=== PATIENT | male | born 1955 | race Caucasian/White ===

== ENCOUNTER 2017-08-29 19:52 | Observation (INO) ==
[2017-08-29] MEDS ORDERED: Famotidine 20 MG/2 ML VIAL IVP ONE (20:05)
[2017-08-29] MEDS ORDERED: methylPREDNISolone 125 MG/2 ML VIAL IVP ONE (20:05)
--- NOTE | 2017-08-29 20:09 | Emergency Department Note ---
Disposition Clinical Impression: Tongue swelling Disposition: Admitted As Inpatient Condition: Good Time of Disposition: 22:50 Allergic Reaction HPI - General Chief complaint: ED Allergic Reaction Stated complaint: Neuro Symptoms Time Seen by Provider: 08/29/17 20:02 Source: patient Mode of arrival: ambulatory Limitations: no limitations Nursing Notes Reviewed: Yes Vital Signs Reviewed: Yes - History of Present Illness HPI Narrative: Patient is a 61-year-old male who presents today due to left tongue swelling, left tongue tingling and left facial tingling. He states that he was outside mowing his lawn, started having these symptoms about 2 hours ago. He proceeded to continue mowing his lawn, afterwards he took a Benadryl to see if this would help with tongue swelling. It did not. He denies any additional shortness breath, wheezing, dysphagia, lip swelling, throat swelling. He is currently on lisinopril but has never had a reaction in the past. Denies any other new foods , new colognes or detergents, any new medications. Denies any other chest pain , shortness breath, nausea, vomiting, fevers, diarrhea. Denies any numbness or weakness. - Related Data Home Medications Medication Instructions Recorded Confirmed Aspirin 81 mg PO DAILY 02/15/15 08/29/17 Atorvastatin [Lipitor] 40 mg PO DAILY 02/15/15 08/29/17 Nitroglycerin 0.3 mg SL Q5MIN PRN 02/15/15 08/29/17 BuPROPion XL (24 HR) [Wellbutrin 150 mg PO DAILY 08/29/17 08/29/17 XL] Diazepam [Valium] 10 mg PO TID PRN 08/29/17 08/29/17 Metoprolol Succinate [Toprol Xl] 50 mg PO DAILY 08/29/17 08/29/17 Previous Rx's Medication Instructions Recorded Amoxicillin [Amoxil] 500 mg PO TID #30 capsule 02/16/15 Albuterol Sulfate [Proair HFA] 1 puff IH Q4HR PRN #1 hfa.aer.ad 02/17/15 Allergies Allergy/AdvReac Type Severity Reaction Status Date / Time No Known Allergies Allergy Verified 08/29/17 22:39 All systems ED: reviewed and negative except as stated. Constitutional: Denies: fever ENT ED: Reports: other (Tongue swelling) Cardiovascular: Denies: chest pain Respiratory: Denies: dyspnea Gastrointestinal: Denies: abdominal pain, nausea, vomiting, diarrhea Genitourinary: Denies: urgency, dysuria Integumentary: Denies: rash Neurological: Denies: headache, weakness, numbness, paresthesias Past Medical History - Past Medical History Attestation: Yes The following information was validated with the patient. Source: patient Medical history: Reports: COPD, coronary artery disease, hyperlipidemia, hypertension, myocardial infarction Surgical history: Reports: angioplasty/stent, cholecystectomy, herniorrhaphy Psychiatric history: Reports: anxiety, depression - Social History Smoking Status: Current every day smoker Smokeless Tobacco Status: No Alcohol use: Reports: none Drug use: Reports: none Physical Exam - General Limitations: no limitations General appearance: alert, in no apparent distress - Head Head exam: atraumatic, normocephalic, normal inspection - Eye Eye exam: Present: normal appearance, PERRL, EOMI - ENT ENT exam: mucous membranes moist, other (moderate swelling of left tongue; no posterior oropharynx swelling; no swelling of face) - Neck Neck exam: Present: normal inspection, full ROM, trachea midline - Chest Chest inspection: Present: normal inspection, symmetric chest wall rise - Respiratory Respiratory exam: Present: normal lung sounds bilaterally - Cardiovascular Cardiovascular exam: Present: regular rate, normal rhythm, normal heart sounds - Abdominal Exam Abdominal exam: Present: soft, Non-Tender. Absent: tenderness, distention, guarding, rebound, rigidity - Extremities Exam Extremities exam: Present: normal inspection, full ROM. Absent: tenderness, pedal edema - Neurological Exam Neurological exam: Present: alert, oriented X3, CN II-XII intact. Absent: motor sensory deficit - Psychiatric Psychiatric exam: Present: normal affect, normal mood - Skin Skin exam: Present: warm, dry, intact, normal color Course Course Narrative: Patient was mildly hypertensive on presentation. Otherwise, the rest of the vitals were within normal limits. Physical exam positive for moderate left- sided tongue swelling. Otherwise, no other history or oropharynx swelling, no facial swelling, no lip swelling, no rashes, no wheezing or shortness of breath , no dysphagia. No focal neurologic deficits on exam. NIH score is 0. Patient was initially registered as neuro symptoms, but this is not accurate. Patient was complaining of some tingling in his tongue and left-sided face that were associated with his environmental allergic reaction versus possible angioedema secondary to lisinopril. No head CT or additional imaging necessary at this time. Patient will be given Benadryl, Solu-Medrol, Pepcid and observe. The patient continues to worsen, will discuss early intubation for protection of airway. 22:49 patient had mild improvement and is left sided tongue swelling. I discussed admission versus discharge with the patient. There is current concern that patient could have rebound of swelling, patient also lives following from a hospital. After discussion, we have mutually agreed to admit the patient for observation overnight. Patient has been accepted by the hospitalist, Dr. Olmos. Vital Signs Temperature 98.3 F 08/29/17 19:55 Pulse Rate 68 08/29/17 19:55 Respiratory Rate 18 08/29/17 19:55 Blood Pressure 165/106 08/29/17 19:55 O2 Sat by Pulse Oximetry 95 08/29/17 19:55 Temperature 98.3 F 08/29/17 19:55 Pulse Rate 68 08/29/17 19:55 Respiratory Rate 18 08/29/17 19:55 Blood Pressure 165/106 08/29/17 19:55 O2 Sat by Pulse Oximetry 95 08/29/17 19:55 Oxygen Delivery Oxygen Delivery Room Air Allergic Reaction - MDM Narrative Medical decision making narrative: Patient was mildly hypertensive on presentation. Otherwise, the rest of the vitals were within normal limits. Physical exam positive for moderate left- sided tongue swelling. Otherwise, no other history or oropharynx swelling, no facial swelling, no lip swelling, no rashes, no wheezing or shortness of breath , no dysphagia. No focal neurologic deficits on exam. NIH score is 0. Patient was initially registered as neuro symptoms, but this is not accurate. Patient was complaining of some tingling in his tongue and left-sided face that were associated with his environmental allergic reaction versus possible angioedema secondary to lisinopril. No head CT or additional imaging necessary at this time. Patient will be given Benadryl, Solu-Medrol, Pepcid and observe. The patient continues to worsen, will discuss early intubation for protection of airway. 22:49 patient had mild improvement and is left sided tongue swelling. I discussed admission versus discharge with the patient. There is current concern that patient could have rebound of swelling, patient also lives following from a hospital. After discussion, we have mutually agreed to admit the patient for observation overnight. Patient has been accepted by the hospitalist, Dr. Olmos. - Medical Records Medical records reviewed: Yes I reviewed the patient's medical records. - EKG Data EKG attestation: Yes I reviewed and interpreted this EKG. EKG results narrative: 08/29/2017 at 20:02. Normal sinus rhythm. Rate 70. IN 207. QRS 110. QTC 402. Mild left axis deviation. No acute ST elevation or depression. S.B.Sola - Skyler.Melissa Situation: Demographics, MOA Background: Presenting Complaint, Relevant PMH, Meds, & Allergies Assessment: Vital Signs, Course and respsone to treatment, Exam Concerns, Patient/Family Expectation, Pertinant Lab Results Recommendation: Barrier(s) to disposition, Recommendation based on pending studies, treatments, or consults S.B.AMicah Report Given to: Dr. Nickolas Jackson Repor Time: 22:50
--- NOTE | 2017-08-29 20:31 | Emergency Department Note ---
Disposition Clinical Impression: Tongue swelling Disposition: Admitted As Inpatient Condition: Good General Adult HPI - General Chief complaint: ED Allergic Reaction Stated complaint: allergic reaction Time Seen by Provider: 08/29/17 20:02 Source: patient Mode of arrival: ambulatory Limitations: no limitations - History of Present Illness Pain Scale: 0 - Related Data Home Medications Medication Instructions Recorded Confirmed Aspirin 81 mg PO DAILY 02/15/15 08/29/17 Atorvastatin [Lipitor] 40 mg PO DAILY 02/15/15 08/29/17 Nitroglycerin 0.3 mg SL Q5MIN PRN 02/15/15 08/29/17 BuPROPion XL (24 HR) [Wellbutrin 150 mg PO DAILY 08/29/17 08/29/17 XL] Diazepam [Valium] 10 mg PO TID PRN 08/29/17 08/29/17 Metoprolol Succinate [Toprol Xl] 50 mg PO DAILY 08/29/17 08/29/17 Previous Rx's Medication Instructions Recorded Amoxicillin [Amoxil] 500 mg PO TID #30 capsule 02/16/15 Albuterol Sulfate [Proair HFA] 1 puff IH Q4HR PRN #1 hfa.aer.ad 02/17/15 Allergies Allergy/AdvReac Type Severity Reaction Status Date / Time No Known Allergies Allergy Verified 08/29/17 22:39 Constitutional: Denies: fever ENT ED: Reports: other (Tongue swelling) Cardiovascular: Denies: chest pain Respiratory: Denies: dyspnea Gastrointestinal: Denies: abdominal pain, nausea, vomiting, diarrhea Genitourinary: Denies: urgency, dysuria Integumentary: Denies: rash Neurological: Denies: headache, weakness, numbness, paresthesias Past Medical History - Past Medical History Medical history: Reports: COPD, coronary artery disease, hyperlipidemia, hypertension, myocardial infarction Surgical history: Reports: angioplasty/stent, cholecystectomy, herniorrhaphy Psychiatric history: Reports: anxiety, depression - Social History Smoking Status: Current every day smoker Smokeless Tobacco Status: No Alcohol use: Reports: none Drug use: Reports: none Physical Exam - General Limitations: no limitations General appearance: alert, in no apparent distress Course Vital Signs Temperature 98.3 F 08/29/17 19:55 Pulse Rate 68 08/29/17 19:55 Respiratory Rate 18 08/29/17 19:55 Blood Pressure 165/106 08/29/17 19:55 O2 Sat by Pulse Oximetry 95 08/29/17 19:55 Temperature 98.3 F 08/29/17 19:55 Pulse Rate 68 08/29/17 19:55 Respiratory Rate 18 08/29/17 19:55 Blood Pressure 165/106 08/29/17 19:55 O2 Sat by Pulse Oximetry 95 08/29/17 19:55 Oxygen Delivery Oxygen Delivery Room Air Critical Care Time Critical Care Time: No Attestation Statement - Attestation Attestation: I examined this patient and my medical decision-making was reviewed with the Resident Physician. I agree with the documented findings, disposition and treatment plan as described except to the extent set forth below. Patient presents to the ED with a chief complaint of tongue swelling. Onset tonight while mowing grass. Patient is noted to be on lisinopril. On examination is a mild amount of swelling the less than his tongue. No neck edema. He is not drooling. No stridor. Lungs clear. Plan. Steroids and Benadryl Pepcid and observation. Patient with mild improvement in his symptoms. Will admit to medicine. Tolerating by mouth at this time.
[2017-08-30] MEDS ORDERED: diazePAM 5 MG TABLET PO PRN (00:17)
[2017-08-30] MEDS ORDERED: Nitroglycerin 0.4 MG TAB.SUBL SL PRN (00:17)
[2017-08-30] MEDS ORDERED: Naloxone 0.4 MG/ML INJ IVP PRN (00:18)
[2017-08-30 00:31] LABS: Basophils # 0.1 K/mcL (0.0-0.2); Basophils % 0.5 %; Eosinophils # 0.1 K/mcL (0.0-0.6); Hematocrit 45.6 % (37.5-50.1); Hemoglobin 15.5 g/dL (12.9-16.9); Immature Granulocytes % 1.5 % (0-4); Lymphocytes % 14.3 %; Mean Corpuscular Hemoglobin 31.9 pg (28.0-33.3); Mean Corpuscular Volume 93.8 fL (83.0-100.0); Mean Platelet Volume 11.1 fL (9.4-12.4); Monocytes # 0.8 K/mcL (0.0-1.3); Monocytes % 5.7 %; Neutrophils # 10.5 K/mcL (1.6-8.9); Platelet Count 256 K/mcL (140-400); Red Blood Count 4.86 M/mcL (4.19-5.50); Red Cell Distribution Width 12.9 % (11.5-14.5)
[2017-08-30 00:40] LABS: BUN/Creatinine Ratio 13 (6-26); Blood Urea Nitrogen 16 mg/dL (8-23); Calcium 9.5 mg/dL (8.6-10.3); Carbon Dioxide 25 mEq/L (23-29); Chloride 105 mEq/L (98-107); Glucose 116 mg/dL (70-105); Osmolality,Calculated 286 (280-300); Potassium 4.2 mEq/L (3.5-5.1); Sodium 137 mEq/L (136-145); eGFR For African Americans > 60 (> 60); eGFR For Non-African Americans > 60 (> 60)
--- NOTE | 2017-08-30 01:20 | Internal Med History&Physical ---
Date of Encounter: 08/30/17 Time of Encounter: 02:03 Internal Medicine - H&P: HPI Chief complaint: Tongue swelling Admitted From: Home Plans for Post Hospital Care: Home History of present illness: Mr. Hernandez is a 61 year old male who presented to the ER for left tongue swelling, left tongue tingling and left facial tingling. He states that he was outside mowing his lawnwhen symptoms started, no respnse to bendaryl taken by patient. He denies any additional shortness breath, wheezing, dysphagia, lip swelling, throat swelling. Patient is not on Lisinopril per med rec, but reports he started taking a new medication for arthiritis, he does not remember the name at this time Denies any other new foods, new colognes or detergents, any new medications. Denies any other chest pain, shortness breath, nausea, vomiting, fevers, diarrhea. Denies any numbness or weakness. At time of review, tongue swelling had resolved. He stated he once had similar reaction when bitten by a spider several years ago Past Med Surg Social Fam HX - Past Medical History Medical history: COPD, coronary artery disease, hyperlipidemia, hypertension, myocardial infarction Psychiatric history: anxiety, depression - Past Surgical History Surgical History: angioplasty/stent, cholecystectomy, herniorrhaphy - Social History Smoking Status: Current every day smoker Packs per day: 1/2 Smokeless Tobacco Status: No Alcohol use: none Drug use: none - Family History Mother Name: Neelam King Living Status: Age at : 83 Cause of : stroke Hx Family Cardiac Disorders: Yes Father Name: Matthew Hernandez Living Status: Age at : 48 Cause of : MVA Internal Medicine - H&P: Meds Aspirin 81 mg PO DAILY 02/15/15 [History] Atorvastatin [Lipitor] 40 mg PO DAILY 02/15/15 [History] Nitroglycerin 0.3 mg SL Q5MIN PRN 02/15/15 [History] Amoxicillin [Amoxil] 500 mg PO TID #30 capsule 02/16/15 [Rx] Albuterol Sulfate [Proair HFA] 1 puff IH Q4HR PRN #1 hfa.aer.ad 02/17/15 [Rx] BuPROPion XL (24 HR) [Wellbutrin XL] 150 mg PO DAILY 08/29/17 [History] Diazepam [Valium] 10 mg PO TID PRN 08/29/17 [History] Metoprolol Succinate [Toprol Xl] 50 mg PO DAILY 08/29/17 [History] 3 Allergy/AdvReac Type Severity Reaction Status Date / Time No Known Allergies Allergy Verified 08/29/17 22:39 All Systems PM: A 10-system review of systems was performed and is negative for pertinent findings except as documented above in the HPI. - Constitutional Constitutional: as per HPI - EENT Eyes: as per HPI Ears: as per HPI Nose, mouth and throat: as per HPI - Breasts Breasts: as per HPI - Cardiovascular Cardiovascular ROS IM: as per HPI - Respiratory Respiratory: as per HPI - Gastrointestinal Gastrointestinal: as per HPI - Musculoskeletal Musculoskeletal ROS IM: as per HPI - Integumentary Integumentary IM: as per HPI - Constitutional Vitals: Temp Pulse Resp BP Pulse Ox 97.7 F 68 14 168/99 96 08/30/17 00:16 08/30/17 00:16 08/30/17 00:16 08/30/17 00:16 08/30/17 00:16 General appearance: Present: A&O X 3, pleasant, no acute distress - Head Head exam: Present: atraumatic, normocephalic - Eye Eye exam: Present: PERRL, conjuntiva pink, sclera anicteric Pupils: Present: PERRL - ENT ENT exam: Present: mucous membranes moist, normal oropharynx - Neck Neck exam general surgery: Present: supple, trachea midline. Absent: lymphadenopathy - Respiratory Respiratory exam: Present: CTAB. Absent: accessory muscle use, rales, rhonchi, stridor, wheezes - Cardiovascular Cardiovascular exam: Present: RRR, +S1, +S2. Absent: diastolic murmur, gallop, rubs, systolic murmur - GI/Abdominal GI/Abdominal exam: Present: normal bowel sounds, soft, no peritoneal signs. Absent: distended, tenderness - Extremities Exam Extremities exam: Present: warm, radial pulses palpable and symmetrical. Absent : calf tenderness, cyanotic, pedal edema Additional comments: clubbing++ - Neurological Exam Neurological exam: Present: alert, CN II-XII intact, oriented X3, no focal deficits. Absent: pronater drift, facial droop, speech deficit - Skin Skin exam: Present: dry, intact Internal Med - H&P Results - Labs CBC & Chem 7: 08/29/17 20:05 08/29/17 20:05 - Assessment and plan (1) Allergic reaction Current Visit: Yes Status: Acute Assessment and plan: resolved suspect due to medications-patient's family to bring his medication list later in the day continue to monitor prednisone po daily, benadryl prn Qualifiers: Encounter type: initial encounter Qualified Code(s): T78.40XA - Allergy, unspecified, initial encounter (2) COPD (chronic obstructive pulmonary disease) Current Visit: Yes Status: Chronic Assessment and plan: not in exacerbation continue home meds Qualifiers: COPD type: unspecified COPD Qualified Code(s): J44.9 - Chronic obstructive pulmonary disease, unspecified (3) Hyperlipidemia Current Visit: Yes Status: Chronic Assessment and plan: continue home meds Qualifiers: Hyperlipidemia type: unspecified Qualified Code(s): E78.5 - Hyperlipidemia , unspecified (4) Hypertension Current Visit: Yes Status: Chronic Assessment and plan: uncontrolled at this time consider titrating metoprolol if persistent continue current home meds and monitor Qualifiers: Hypertension type: essential hypertension Qualified Code(s): I10 - Essential (primary) hypertension (5) Tobacco abuse Current Visit: Yes Status: Chronic Assessment and plan: encouraged cessation - Time Spent With Patient Total time spent is greater than 50% in coordination of care (as documented) at patient's floor/unit and/or counseling patient:
[2017-08-30] MEDS: Metoprolol XL (24 HR) Succ 50 MG TAB.ER.24H PO SCH (08:26)
[2017-08-30] MEDS: BuPROPion XL (24 HR) 150 MG TABLET PO SCH (08:26)
[2017-08-30] MEDS: Famotidine 20 MG TABLET PO SCH ×2 (08:26→17:57)
[2017-08-30] MEDS: Aspirin 81 MG TAB.CHEW PO SCH (08:26)
[2017-08-30] MEDS: predniSONE 20 MG TABLET PO SCH (08:26)
[2017-08-30] MEDS: amLODIPine 5 MG TABLET PO SCH (14:39)
[2017-08-30] MEDS ORDERED: Acetaminophen 325 MG TABLET PO ONE (16:27)
--- NOTE | 2017-08-30 16:45 | Event Note ---
Date of Encounter: 08/30/17 Time of Encounter: 16:40 (1) Allergic reaction possible; presented with left facial and tongue swelling. Exact cause unknown; patient reported doing yard work when swelling acutely started. Possibly secondary to HAMZAH inhibitor or bug bite. Symptoms improved with steroids. No swelling noted on 08/30 exam. Continue steroids, Benadryl. Recommend not resuming ACEI. Cont daily weights 24 hours and anticipate discharge 08/31 as long as swelling remains improved (2) COPD (chronic obstructive pulmonary disease) per hx. No evidence of exacerbation. Continue inhalers. (3) Hyperlipidemia per hx, continue home meds (4) Hypertension per hx. Uncontrolled. Cont home BB, HAMZAH stopped with possible allergic reaction as noted above. Add amlodipine. Monitor BP and titrate PRN (5) Tobacco abuse encouraged cessation
[2017-08-31] MEDS: Famotidine 20 MG TABLET PO SCH (06:24)
[2017-08-31 06:35] LABS: Hematocrit 44.6 % (37.5-50.1); Mean Corpuscular HGB Conc 33.6 g/dL (31.6-35.5); Mean Corpuscular Volume 92.1 fL (83.0-100.0); Mean Platelet Volume 10.5 fL (9.4-12.4); Platelet Count 244 K/mcL (140-400); Red Blood Count 4.84 M/mcL (4.19-5.50)
[2017-08-31 06:59] LABS: BUN/Creatinine Ratio 17 (6-26); Blood Urea Nitrogen 18 mg/dL (8-23); Calcium 9.2 mg/dL (8.6-10.3); Carbon Dioxide 24 mEq/L (23-29); Chloride 108 mEq/L (98-107); Glucose 104 mg/dL (70-105); Osmolality,Calculated 290 (280-300); Potassium 3.9 mEq/L (3.5-5.1); Sodium 139 mEq/L (136-145); eGFR For African Americans > 60 (> 60); eGFR For Non-African Americans > 60 (> 60)
[2017-08-31] MEDS: Metoprolol XL (24 HR) Succ 50 MG TAB.ER.24H PO SCH (08:27)
[2017-08-31] MEDS: BuPROPion XL (24 HR) 150 MG TABLET PO SCH (08:27)
[2017-08-31] MEDS: predniSONE 20 MG TABLET PO SCH (08:27)
[2017-08-31] MEDS: amLODIPine 5 MG TABLET PO SCH (08:28)
[2017-08-31] MEDS: Aspirin 81 MG TAB.CHEW PO SCH (08:28)
[2017-08-31 10:22] VITALS: BP 156/95
--- NOTE | 2017-08-31 11:35 | Discharge Summary ---
- NOTES TO OUTPATIENT PROVIDER Notes to Outpatient Provider: Recommend follow-up within one week for BP recheck and medication review Orders not resulted at time of discharge: Pending orders 08/31/17 03:11 EKG [ECG 12 lead ECG] [ECG] Stat 09/01/17 04:00 BMP [Basic Metabolic Panel] AM 0400 Complete Blood Count w/o Diff [HEME] AM 0400 09/02/17 04:00 BMP [Basic Metabolic Panel] AM 0400 Complete Blood Count w/o Diff [HEME] AM 04009/03/17 04:00 BMP [Basic Metabolic Panel] AM 0400 Complete Blood Count w/o Diff [HEME] AM 0400 09/04/17 04:00 BMP [Basic Metabolic Panel] AM 0400 Complete Blood Count w/o Diff [HEME] AM 0400 Date of Encounter: 08/31/17 Time of Encounter: 11:24 - Discharge Diagnosis (1) Allergic reaction Priority: Primary Status: Acute Comments: possible; presented with left facial and tongue swelling. Exact cause unknown; patient reported doing yard work when swelling acutely started. Possibly secondary to bug/insect bite however patient also reports taking lisinopril at home despite not being on home medication list (confirmed with patient's pharmacy). Symptoms resolved with steroids, H1/H2. Advised patient he should not take in HAMZAH/ARB and definitely if he is indeed taking lisinopril at home. Discharge home on steroid taper, famotidine. Recommend follow-up with PCP within one week Qualifiers: Encounter type: initial encounter Qualified Code(s): T78.40XA - Allergy, unspecified, initial encounter (2) Leukocytosis Priority: Primary Status: Acute Comments: WBC 17K. Afebrile, no hypotension, no tachycardia. Does not appear toxic or acute. Suspect secondary to steroids. Recommend repeat CBC within 7-10 days with PCP Qualifiers: Leukocytosis type: unspecified Qualified Code(s): D72.829 - Elevated white blood cell count, unspecified (3) Hypertension Priority: Primary Status: Chronic Comments: per hx and uncontrolled. Patient reports taking metoprolol and lisinopril at home despite lisinopril not being on home medication list. BP uncontrolled but improved with continuing home BB and adding amlodipine. Advised patient to keep long of BP and follow-up with PCP within one week for BP recheck Qualifiers: Hypertension type: essential hypertension Qualified Code(s): I10 - Essential (primary) hypertension (4) Hyperlipidemia Priority: Secondary Status: Chronic Comments: per hx. Cont home statin Qualifiers: Hyperlipidemia type: unspecified Qualified Code(s): E78.5 - Hyperlipidemia , unspecified (5) COPD (chronic obstructive pulmonary disease) Priority: Secondary Status: Chronic Comments: per hx. Current smoker; cessation advised. No evidence of exacerbation. Qualifiers: COPD type: emphysema Emphysema type: unspecified Qualified Code(s): J43.9 - Emphysema, unspecified (6) Tobacco abuse Priority: Secondary Status: Chronic Comments: Cessation advised (7) ULYSSES (obstructive sleep apnea) Priority: Secondary Status: Chronic Comments: per hx. noncompliant with home CPAP/BiPAP. This could be contributing to uncontrolled blood pressure. Advised patient to follow-up with PCP as he will likely require repeat sleep study Hospital course: Please see assessment and plan for hospital course. Discharge discussed with: patient (Seen and examined at bedside. Patient says swelling is completely gone and he is back to baseline. No dysfunction, no dyspnea. Reviewed home medication with patient and he does report taking lisinopril at home despite not being on his medication list. He also was recently started on mobic for arthritis. Advised to discontinue taking both of those medications. No chest pain, no shortness of breath at time of discharge.) - Time Spent with Patient Total time spent providing and/or coordinating discharge services: - Discharge Medications Prescriptions: amLODIPine [Norvasc] 10 mg PO DAILY #60 tablet Famotidine [Pepcid] 20 mg PO BIDAC #12 tablet predniSONE [PredniSONE] See Taper PO DAILY #12 tablet Home Medications: Aspirin 81 mg PO DAILY 02/15/15 [History] Atorvastatin [Lipitor] 40 mg PO DAILY 02/15/15 [History] Nitroglycerin 0.3 mg SL Q5MIN PRN 02/15/15 [History] Albuterol Sulfate [Albuterol Inhaler] 1 puff IH Q4HR PRN #1 hfa.aer.ad 02/17/15 [Rx] BuPROPion XL (24 HR) [Wellbutrin Xl] 150 mg PO DAILY 08/29/17 [History] Diazepam [Valium] 10 mg PO TID PRN 08/29/17 [History] Metoprolol Succinate [Toprol Xl] 50 mg PO DAILY 08/29/17 [History] Famotidine [Pepcid] 20 mg PO BIDAC #12 tablet 08/31/17 [Rx] amLODIPine [Norvasc] 10 mg PO DAILY #60 tablet 08/31/17 [Rx] predniSONE [PredniSONE] See Taper PO DAILY #12 tablet 08/31/17 [Rx] Allergies/Adverse Reactions: 3 Allergy/AdvReac Type Severity Reaction Status Date / Time No Known Allergies Allergy Verified 08/29/17 22:39 Date of admission: 08/29/17 23:21 Primary care physician: ARGENTINA Villanueva Discharging clinician: Ashlyn Corey Anticipated date of discharge: 08/31/17 - Constitutional Vitals: Temp Pulse Resp BP Pulse Ox 98.1 F 67 16 156/95 98 08/31/17 10:21 08/31/17 10:21 08/31/17 10:21 08/31/17 10:21 08/31/17 10:21 General appearance: Present: A&O X 3, pleasant, no acute distress - Head Head exam: Present: atraumatic, normocephalic - Eye Eye exam: Present: PERRL, conjuntiva pink, sclera anicteric Pupils: Present: PERRL - Neck Neck exam general surgery: Present: supple, trachea midline. Absent: lymphadenopathy - Respiratory Respiratory exam: Present: CTAB. Absent: accessory muscle use, rales, rhonchi, wheezes - Cardiovascular Cardiovascular exam: Present: RRR, +S1, +S2. Absent: diastolic murmur, gallop, rubs, systolic murmur - GI/Abdominal GI/Abdominal exam: Present: normal bowel sounds, soft, no peritoneal signs. Absent: distended, tenderness - Extremities Exam Extremities exam: Present: warm, radial pulses palpable and symmetrical. Absent : calf tenderness, cyanotic, pedal edema - Neurological Exam Neurological exam: Present: CN II-XII intact, oriented X3, no focal deficits. Absent: pronater drift, facial droop, speech deficit - Skin Skin exam: Present: dry, intact - Patient Status Disposition: Home, Self-Care Condition: Good Functional capacity at discharge: independent ambulation Overall status at discharge: patient is back to baseline - Discharge Instructions Instructions: Amlodipine (By mouth), Prednisone (By mouth), Famotidine (By mouth), Angioedema (GEN) Follow Up With: Michaelle Caraballo CNP [Primary Care Provider] - (Please herbert your primary care doctor for follow-up appointment within 1 week.) - Diet and Activity Activity: increase activity as tolerated Diet: low fat, low cholesterol
--- NOTE | 2017-09-02 05:27 | Electrocardiograph Report ---
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
--- NOTE | 2017-09-02 05:58 | Electrocardiograph Report ---
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
== END 2017-08-31 12:36 | disposition home or self-care (01) ==
LOC: 3BNU 19:52 → EMEROO 19:52 → 3BNU 23:45
PROVIDERS: ADMIT Internal Medicine; ATTEND Internal Medicine

== ENCOUNTER 2017-10-16 17:09 | Observation (INO) ==
--- NOTE | 2017-10-16 17:22 | Emergency Department Note ---
Disposition Clinical Impression: Chest pain Qualifiers: Chest pain type: other chest pain Qualified Code(s): R07.89 - Other chest pain ; R07.8 - Other chest pain Disposition: Admitted As Inpatient Condition: Fair Time of Disposition: 21:21 Extremity Problem HPI - General Chief complaint: ED Extremity Problem,Nontraumatic Stated complaint: Possible DVT Right Leg Source: patient Limitations: no limitations Nursing Notes Reviewed: Yes Vital Signs Reviewed: Yes - History of Present Illness HPI Narrative: 59-year-old male presents emergency department with concern for right lower extremity swelling. Primary care provider sent patient here for rule out DVT. Patient is also reporting some right-sided arm pain. Patient states that he has had this arm pain prior to her heart attack before. Patient states that right arm pain happened a few times, and then one day he woke up with right arm pain with chest pain. Patient states that the right arm has been going on last few weeks. Patient said he was most recently last night and he took a small aspirin and the pain went away. Patient denies any history of blood clots. Denies any recent travel. Patient does report some Tenderness. Patient denies any pleuritic-type chest pain. He denies any hemoptysis. Pain Scale: 4 - Related Data Home Medications Medication Instructions Recorded Confirmed Aspirin 81 mg PO DAILY 02/15/15 08/29/17 BuPROPion XL (24 HR) [Wellbutrin 150 mg PO DAILY 08/29/17 08/29/17 Xl] Metoprolol Succinate [Toprol Xl] 50 mg PO DAILY 08/29/17 08/29/17 Albuterol Sulfate [Ventolin Hfa] 1 puff IH Q4H PRN 10/16/17 10/16/17 Atorvastatin [Lipitor] 40 mg PO HS 10/16/17 10/16/17 Nitroglycerin [Nitrostat] 0.4 mg SL Q5MIN PRN 10/16/17 10/16/17 diazePAM [Valium] 10 mg PO TID 10/16/17 10/16/17 Previous Rx's Medication Instructions Recorded amLODIPine [Norvasc] 10 mg PO DAILY #60 tablet 08/31/17 Allergies Allergy/AdvReac Type Severity Reaction Status Date / Time No Known Allergies Allergy Verified 08/29/17 22:39 All systems ED: reviewed and negative except as stated. Review of Systems: As Per HPI Constitutional: Denies: fever Cardiovascular: Reports: chest pain Respiratory: Denies: cough, dyspnea Gastrointestinal: Denies: abdominal pain, nausea, vomiting Musculoskeletal: Reports: other (Right shoulder pain). Denies: back pain Neurological: Denies: headache Endocrine: Denies: fatigue Past Medical History - Past Medical History Medical history: Reports: COPD, coronary artery disease, hyperlipidemia, hypertension, myocardial infarction Surgical history: Reports: angioplasty/stent, cholecystectomy, herniorrhaphy Psychiatric history: Reports: anxiety, depression - Social History Smoking Status: Former smoker Smokeless Tobacco Status: No Alcohol use: Reports: none Drug use: Reports: none Physical Exam - General Limitations: no limitations General appearance: alert - Head Head exam: atraumatic, normocephalic - Eye Eye exam: Present: EOMI. Absent: scleral icterus - ENT ENT exam: normal oropharynx, mucous membranes moist - Neck Neck exam: Present: full ROM, trachea midline. Absent: tenderness, meningismus - Chest Chest inspection: Present: normal inspection, symmetric chest wall rise - Respiratory Respiratory exam: Present: normal lung sounds bilaterally. Absent: respiratory distress, accessory muscle use - Cardiovascular Cardiovascular exam: Present: regular rate, normal rhythm, normal heart sounds - Abdominal Exam Abdominal exam: Present: soft, Non-Tender. Absent: distention, guarding, rebound - Extremities Exam Extremities exam: Present: normal capillary refill, calf tenderness (Right leg) , other (Right leg appears more swollen than left. No palpable cords, but calf tenderness.) - Back Exam Back exam: Present: normal inspection, full ROM. Absent: CVA tenderness (R), CVA tenderness (L) - Neurological Exam Neurological exam: Present: alert, oriented X3 - Psychiatric Psychiatric exam: Present: normal affect, normal mood - Skin Skin exam: Present: warm, dry, intact Course Vital Signs Temperature 98.2 F 10/16/17 17:17 Pulse Rate 76 10/16/17 17:17 Respiratory Rate 16 10/16/17 17:17 Blood Pressure 115/73 10/16/17 17:17 O2 Sat by Pulse Oximetry 93 10/16/17 17:17 Temperature 98.2 F 10/16/17 17:17 Pulse Rate 76 10/16/17 17:17 Respiratory Rate 16 10/16/17 17:17 Blood Pressure 115/73 10/16/17 17:17 O2 Sat by Pulse Oximetry 97 10/16/17 18:18 Oxygen Delivery Oxygen Delivery Room Air Extremity Problem, Nontraumati - [facility] Narrative Medical decision making narrative: 59-year-old male presents emergency department with concern for DVT and right lower extremity. He also has been reporting right arm pain that was similar to pain that precipitated a heart attack he had in the past. Electrocardiogram does not reveal any evidence of any ischemic ST changes. Patient not in any acute distress. We will give him a dose of aspirin here in the emergency department. Because patient is not having active chest pain, we will not give any nitroglycerin at this time. Chest x-ray reveals findings suggestive chronic interstitial changes and emphysema. DVC study that was obtained due to right lower extremity swelling was negative. At this time, I do not think this patient has a pulmonary embolism because they are not tachycardic, not hypotensive, and oxygen saturation has been between 9397% on room air with a known history of emphysema. Patient was given aspirin here in the emergency department. Vital Signs Temperature 98.2 F 10/16/17 17:17 Pulse Rate 76 10/16/17 17:17 Respiratory Rate 16 10/16/17 17:17 Blood Pressure 115/73 10/16/17 17:17 O2 Sat by Pulse Oximetry 93 10/16/17 17:17 Temperature 98.2 F 10/16/17 17:17 Pulse Rate 76 10/16/17 17:17 Respiratory Rate 16 10/16/17 17:17 Blood Pressure 115/73 10/16/17 17:17 O2 Sat by Pulse Oximetry 97 10/16/17 18:18 Oxygen Delivery Oxygen Delivery Room Air Chest X-Ray 10/16/17 17:39 IMPRESSION: Findings suggestive of chronic interstitial changes and emphysema. No obvious superimposed acute process. CT could better evaluate lung parenchyma if indicated. D/ / 10/16/2017 18:33:35 Gardenia Woods MD / keith Interpreting Provider: Gardenia Woods MD - Lab Data Result diagrams: 10/16/17 17:55 10/16/17 17:55 Lab Results 10/16/17 10/16/17 10/16/17 Range/Units 17:55 17:55 17:55 WBC 8.3 (4.3-11.1) K/mcL RBC 4.64 (4.19-5.50) M/mcL Hgb 14.6 (12.9-16.9) g/dL Hct 42.9 (37.5-50.1) % MCV 92.5 (83.0-100.0) fL MCH 31.5 (28.0-33.3) pg MCHC 34.0 (31.6-35.5) g/dL RDW 12.9 (11.5-14.5) % Plt Count 203 (140-400) K/mcL MPV 10.3 (9.4-12.4) fL Immature Gran % 0.4 (0-4) % Seg Neutrophils % 52.0 % Lymphocytes % 32.9 % Monocytes % 11.5 % Eosinophils % 2.5 % Basophils % 0.7 % Neutrophils # 4.3 (1.6-8.9) K/mcL Lymphocytes # 2.7 (0.6-4.6) K/mcL Monocytes # 1.0 (0.0-1.3) K/mcL Eosinophils # 0.2 (0.0-0.6) K/mcL Basophils # 0.1 (0.0-0.2) K/mcL Sodium 139 (136-145) mEq/L Potassium 4.3 (3.5-5.1) mEq/L Chloride 106 (98-107) mEq/L Carbon Dioxide 25 (23-29) mEq/L BUN 13 (8-23) mg/dL Creatinine 1.28 (0.70-1.30) mg/dL Est GFR ( Amer) > 60 (> 60) Est GFR (Non-Af Amer) 57 L (> 60) BUN/Creatinine Ratio 10 (6-26) Glucose 67 L (70-105) mg/dL Calculated Osmolality 286 (280-300) Calcium 9.0 (8.6-10.3) mg/dL Troponin I < 0.03 (< 0.04) ng/mL B-Natriuretic Peptide 94 (Less than 100) pg/mL - EKG Data EKG attestation: Yes I reviewed and interpreted this EKG. EKG results narrative: 17:56 Ventricular rate 74 bpm, ME interval 214 ms, QRS duration 170 bpm, QT 382 bpm, QTC 410 ms, left axis deviation. First-degree AV block. Sinus rhythm with ventricular [address] changes noted. No evidence of STEMI. This study was compared to one performed on August 31, 2017.
[2017-10-16] MEDS ORDERED: Aspirin 81 MG TAB.CHEW PO ONE (17:39)
[2017-10-16 18:09] LABS: Basophils # 0.1 K/mcL (0.0-0.2); Basophils % 0.7 %; Eosinophils # 0.2 K/mcL (0.0-0.6); Eosinophils % 2.5 %; Hematocrit 42.9 % (37.5-50.1); Hemoglobin 14.6 g/dL (12.9-16.9); Immature Granulocytes % 0.4 % (0-4); Lymphocytes # 2.7 K/mcL (0.6-4.6); Lymphocytes % 32.9 %; Mean Corpuscular Hemoglobin 31.5 pg (28.0-33.3); Mean Corpuscular Volume 92.5 fL (83.0-100.0); Mean Platelet Volume 10.3 fL (9.4-12.4); Monocytes % 11.5 %; Neutrophils # 4.3 K/mcL (1.6-8.9); Platelet Count 203 K/mcL (140-400); Red Blood Count 4.64 M/mcL (4.19-5.50); Red Cell Distribution Width 12.9 % (11.5-14.5)
[2017-10-16 18:32] LABS: BUN/Creatinine Ratio 10 (6-26); Blood Urea Nitrogen 13 mg/dL (8-23); Carbon Dioxide 25 mEq/L (23-29); Chloride 106 mEq/L (98-107); Glucose 67 mg/dL (70-105); Osmolality,Calculated 286 (280-300); Potassium 4.3 mEq/L (3.5-5.1); Sodium 139 mEq/L (136-145); Troponin I < 0.03 ng/mL (< 0.04); eGFR For African Americans > 60 (> 60); eGFR For Non-African Americans 57 (> 60)
--- NOTE | 2017-10-16 22:08 | Emergency Department Note ---
Disposition Clinical Impression: Chest pain Qualifiers: Chest pain type: other chest pain Qualified Code(s): R07.89 - Other chest pain Disposition: Admitted As Inpatient Condition: Fair General Adult HPI - General Chief complaint: ED Extremity Problem,Nontraumatic Stated complaint: Possible DVT Right Leg Time Seen by Provider: 10/16/17 17:22 Source: patient Limitations: no limitations - History of Present Illness Pain Scale: 0 - Related Data Home Medications Medication Instructions Recorded Confirmed Aspirin 81 mg PO DAILY 02/15/15 10/16/17 BuPROPion XL (24 HR) [Wellbutrin 150 mg PO DAILY 08/29/17 10/16/17 Xl] Metoprolol Succinate [Toprol Xl] 50 mg PO DAILY 08/29/17 10/16/17 Albuterol Sulfate [Ventolin Hfa] 1 puff IH Q4H PRN 10/16/17 10/16/17 Atorvastatin [Lipitor] 40 mg PO HS 10/16/17 10/16/17 Nitroglycerin [Nitrostat] 0.4 mg SL Q5MIN PRN 10/16/17 10/16/17 diazePAM [Valium] 10 mg PO TID 10/16/17 10/16/17 Previous Rx's Medication Instructions Recorded amLODIPine [Norvasc] 10 mg PO DAILY #60 tablet 08/31/17 Allergies Allergy/AdvReac Type Severity Reaction Status Date / Time No Known Allergies Allergy Verified 08/29/17 22:39 Constitutional: Denies: fever Cardiovascular: Reports: chest pain Respiratory: Denies: cough, dyspnea Gastrointestinal: Denies: abdominal pain, nausea, vomiting Musculoskeletal: Reports: other (Right shoulder pain). Denies: back pain Neurological: Denies: headache Endocrine: Denies: fatigue Past Medical History - Past Medical History Medical history: Reports: COPD, coronary artery disease, hyperlipidemia, hypertension, myocardial infarction Surgical history: Reports: angioplasty/stent, cholecystectomy, herniorrhaphy Psychiatric history: Reports: anxiety, depression - Social History Smoking Status: Former smoker Smokeless Tobacco Status: No Alcohol use: Reports: none Drug use: Reports: none Physical Exam - General Limitations: no limitations General appearance: alert Course Vital Signs Temperature 98.2 F 10/16/17 17:17 Pulse Rate 76 10/16/17 17:17 Respiratory Rate 16 10/16/17 17:17 Blood Pressure 115/73 10/16/17 17:17 O2 Sat by Pulse Oximetry 93 10/16/17 17:17 Temperature 98.2 F 10/16/17 17:17 Pulse Rate 76 10/16/17 17:17 Respiratory Rate 18 10/16/17 21:44 Blood Pressure 127/95 10/16/17 21:44 O2 Sat by Pulse Oximetry 97 10/16/17 18:18 Oxygen Delivery Oxygen Delivery Room Air Medical Decision Making - Lab Data Result diagrams: 10/16/17 17:55 10/16/17 17:55 Lab Results 10/16/17 10/16/17 10/16/17 Range/Units 17:55 17:55 17:55 WBC 8.3 (4.3-11.1) K/mcL RBC 4.64 (4.19-5.50) M/mcL Hgb 14.6 (12.9-16.9) g/dL Hct 42.9 (37.5-50.1) % MCV 92.5 (83.0-100.0) fL MCH 31.5 (28.0-33.3) pg MCHC 34.0 (31.6-35.5) g/dL RDW 12.9 (11.5-14.5) % Plt Count 203 (140-400) K/mcL MPV 10.3 (9.4-12.4) fL Immature Gran % 0.4 (0-4) % Seg Neutrophils % 52.0 % Lymphocytes % 32.9 % Monocytes % 11.5 % Eosinophils % 2.5 % Basophils % 0.7 % Neutrophils # 4.3 (1.6-8.9) K/mcL Lymphocytes # 2.7 (0.6-4.6) K/mcL Monocytes # 1.0 (0.0-1.3) K/mcL Eosinophils # 0.2 (0.0-0.6) K/mcL Basophils # 0.1 (0.0-0.2) K/mcL Sodium 139 (136-145) mEq/L Potassium 4.3 (3.5-5.1) mEq/L Chloride 106 (98-107) mEq/L Carbon Dioxide 25 (23-29) mEq/L BUN 13 (8-23) mg/dL Creatinine 1.28 (0.70-1.30) mg/dL Est GFR ( Amer) > 60 (> 60) Est GFR (Non-Af Amer) 57 L (> 60) BUN/Creatinine Ratio 10 (6-26) Glucose 67 L (70-105) mg/dL Calculated Osmolality 286 (280-300) Calcium 9.0 (8.6-10.3) mg/dL Troponin I < 0.03 (< 0.04) ng/mL B-Natriuretic Peptide 94 (Less than 100) pg/mL Attestation Statement - Attestation Attestation: I examined this patient and my medical decision-making was reviewed with the Resident Physician, Dr. Lion. I agree with the documented findings, disposition and treatment plan as described except to the extent set forth below. Patient is a 61-year-old white male with a history of prior [place] hyperlipidemia hypertension who presents to the emergency department sent by his primary care physician for evaluated of right lower extremity swelling rule out DVT. Patient with no prior DVT or PE. Patient denies any chest pain pressure or heaviness but does say that he has been having pain in his right arm, similar to the pain he had with his prior [place]. Patient states with his prior heart attack he had a squeezing sensation in his right upper arm in the deltoid area but never had any chest pain associated with it. Patient has not had any recent cardiac testing. Patient states his arm pain has been intermittent over the last 36 hours worsened with exertion and states that he will take a baby aspirin at home and the pain seems to go away with rest and aspirin. Currently patient having a dull ache in his right shoulder but denies any form of chest wall pain. No diaphoresis, no shortness of breath, no abdominal pain nausea vomiting or any other associated symptoms. Patient denies any lower extremity pain and just isolated swelling. No sign of injury. I agree with patient's physical exam findings as documented. Vital signs are stable and he is in no acute distress on arrival. KG did not show any acute ischemia. Patient had right lower extremity venous Doppler study which was reported by the mold tooling technician is negative. Patient's lab evaluation is within normal limits. Were concerned about the patient possibly having symptoms of unstable angina. Patient will be admitted for further evaluation considering his significant cardiac history. Case was discussed with hospitalist who accepted patient patient for admission for further evaluation and management.
--- NOTE | 2017-10-16 22:57 | Internal Med History&Physical ---
Date of Encounter: 10/16/17 Time of Encounter: 22:50 Internal Medicine - H&P: HPI Admitted From: Emergency Dept Plans for Post Hospital Care: Home History of present illness: Mr. Hernandez is a 61 year old male epistaxis, HTN, HLD, ULYSSES, and COPD. Pt states he went in to see PCP today about his R shoulder pain. While he was there PCP noticed he had some RLE edema and sent him to ED for venous doppler. Pt states he mentioned to ED physician that R shoulder flowers is similar to when he had is previous [facility]. In ED CBC wnl. BMP wnl. BNP 94. troponin <0.03. EKG Chest x ray IMPRESSION: findings sugestive of chronic interstitial changes and emphysema. No obvious superimposed acute process. CT could better evaluate lung parenchyma if indicated. Past Med Surg Social Fam HX - Past Medical History Medical history: COPD, coronary artery disease, hyperlipidemia, hypertension, myocardial infarction Additional medical history: hernia Psychiatric history: anxiety, depression - Past Surgical History Surgical History: angioplasty/stent, cholecystectomy, herniorrhaphy - Social History Smoking Status: Former smoker Smokeless Tobacco Status: No Alcohol use: none Drug use: none - Family History Mother Living Status: Age at : 86 Hx Family Cardiac Disorders: Yes (CHF) Hx Family Respiratory Disorders: Yes Father Living Status: Internal Medicine - H&P: Meds Aspirin 81 mg PO DAILY 02/15/15 [History] BuPROPion XL (24 HR) [Wellbutrin Xl] 150 mg PO DAILY 08/29/17 [History] Metoprolol Succinate [Toprol Xl] 50 mg PO DAILY 08/29/17 [History] amLODIPine [Norvasc] 10 mg PO DAILY #60 tablet 08/31/17 [Rx] Albuterol Sulfate [Ventolin Hfa] 1 puff IH Q4H PRN 10/16/17 [History] Atorvastatin [Lipitor] 40 mg PO HS 10/16/17 [History] Nitroglycerin [Nitrostat] 0.4 mg SL Q5MIN PRN 10/16/17 [History] diazePAM [Valium] 10 mg PO TID 10/16/17 [History] 3 Allergy/AdvReac Type Severity Reaction Status Date / Time No Known Allergies Allergy Verified 08/29/17 22:39 All Systems PM: A 10-system review of systems was performed and is negative for pertinent findings except as documented above in the HPI. - Constitutional Vitals: Temp Pulse Resp BP Pulse Ox 98.2 F 76 18 127/95 97 10/16/17 17:17 10/16/17 17:17 10/16/17 21:44 10/16/17 21:44 10/16/17 18:18 General appearance: Present: A&O X 3, no acute distress - Head Head exam: Present: atraumatic, normocephalic - Eye Eye exam: Present: PERRL, conjuntiva pink, sclera anicteric Pupils: Present: PERRL - Neck Neck exam general surgery: Present: supple, trachea midline. Absent: lymphadenopathy - Respiratory Respiratory exam: Present: CTAB. Absent: accessory muscle use, rales, rhonchi, wheezes - Cardiovascular Cardiovascular exam: Present: RRR, +S1, +S2. Absent: diastolic murmur, gallop, rubs, systolic murmur - GI/Abdominal GI/Abdominal exam: Present: normal bowel sounds, soft, no peritoneal signs. Absent: distended, tenderness - Extremities Exam Extremities exam: Present: pedal edema, warm, radial pulses palpable and symmetrical. Absent: calf tenderness, cyanotic - Neurological Exam Neurological exam: Present: CN II-XII intact, oriented X3, no focal deficits. Absent: pronater drift, facial droop, speech deficit - Skin Skin exam: Present: dry, intact Internal Med - H&P Results - Labs CBC & Chem 7: 10/16/17 17:55 10/16/17 17:55 - Assessment and plan (1) Right shoulder pain Current Visit: Yes Status: Acute Assessment and plan: Pt states he had right shoulder pain when he had is last [facility]. He is s/p one stent. Will cycle troponin. ASA 81 mg. Atorvastatin 40 mg. Nitro SL. Will x ray R shoulder. Qualifiers: Qualified Code(s): M25.511 - Pain in right shoulder (2) Hypertension Current Visit: No Status: Chronic Assessment and plan: Norvasc and Metoprolol. Qualifiers: Hypertension type: essential hypertension Qualified Code(s): I10 - Essential (primary) hypertension (3) Hyperlipidemia Current Visit: No Status: Chronic Assessment and plan: Atorvastatin Qualifiers: Hyperlipidemia type: unspecified Qualified Code(s): E78.5 - Hyperlipidemia , unspecified - Time Spent With Patient Total time spent is greater than 50% in coordination of care (as documented) at patient's floor/unit and/or counseling patient: 25 - 35 minutes
[2017-10-16] MEDS ORDERED: Nitroglycerin 0.4 MG TAB.SUBL SL PRN (23:04)
[2017-10-17 00:58] LABS: Basophils # 0.1 K/mcL (0.0-0.2); Basophils % 0.7 %; Eosinophils # 0.2 K/mcL (0.0-0.6); Eosinophils % 2.9 %; Hemoglobin 13.8 g/dL (12.9-16.9); Immature Granulocytes % 0.3 % (0-4); Lymphocytes # 2.4 K/mcL (0.6-4.6); Lymphocytes % 31.9 %; Mean Corpuscular HGB Conc 34.5 g/dL (31.6-35.5); Mean Corpuscular Hemoglobin 31.9 pg (28.0-33.3); Mean Corpuscular Volume 92.4 fL (83.0-100.0); Mean Platelet Volume 10.4 fL (9.4-12.4); Monocytes # 0.9 K/mcL (0.0-1.3); Monocytes % 11.7 %; Platelet Count 186 K/mcL (140-400); Red Blood Count 4.33 M/mcL (4.19-5.50); Red Cell Distribution Width 12.8 % (11.5-14.5); Segmented Neutrophils % 52.5 %
[2017-10-17 01:13] LABS: INR 1.1; Prothrombin Time 12.1 Seconds (9.4-12.1)
[2017-10-17 01:40] LABS: Alanine Aminotransferase 30 Units/L (7-52); Albumin 3.7 g/dL (3.5-5.7); Albumin/Globulin Ratio 1.6 (1.1-2.2); Alkaline Phosphatase 74 Units/L (34-104); Aspartate Amino Transferase 22 Units/L (13-39); BUN/Creatinine Ratio 11 (6-26); Bilirubin,Total 0.3 mg/dL (0.3-1.0); Blood Urea Nitrogen 13 mg/dL (8-23); Calcium 8.7 mg/dL (8.6-10.3); Carbon Dioxide 24 mEq/L (23-29); Chloride 109 mEq/L (98-107); Globulin 2.3 g/dL (2.4-3.5); Glucose 119 mg/dL (70-105); Magnesium 2.2 mg/dL (1.6-2.6); Osmolality,Calculated 289 (280-300); Potassium 3.8 mEq/L (3.5-5.1); Sodium 139 mEq/L (136-145); eGFR For African Americans > 60 (> 60); eGFR For Non-African Americans > 60 (> 60)
[2017-10-17] MEDS: diazePAM 10 MG TABLET PO SCH ×2 (08:47→14:27)
[2017-10-17] MEDS ORDERED: Aspirin 81 MG TAB.CHEW PO SCH (09:00)
[2017-10-17] MEDS ORDERED: Metoprolol XL (24 HR) Succ 50 MG TAB.ER.24H PO SCH (09:00)
[2017-10-17] MEDS ORDERED: amLODIPine 5 MG TABLET PO SCH (09:00)
[2017-10-17] MEDS ORDERED: BuPROPion XL (24 HR) 150 MG TABLET PO SCH (09:00)
[2017-10-17 16:12] VITALS: BP 107/65
[2017-10-17] MEDS ORDERED: Doxycycline 100 MG CAPSULE PO ONE (17:40)
--- NOTE | 2017-10-17 17:44 | Electrocardiograph Report ---
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
--- NOTE | 2017-10-17 17:47 | Discharge Summary ---
Date of Encounter: 10/17/17 Time of Encounter: 17:45 - Discharge Diagnosis (1) Phlebitis Status: Acute (2) Swelling of right lower extremity Status: Acute Hospital course: Mr. Hernandez is a 61 year old male - Time Spent with Patient Total time spent providing and/or coordinating discharge services: - Discharge Medications Prescriptions: Doxycycline 100 mg PO BID #20 capsule Home Medications: Aspirin 81 mg PO DAILY 02/15/15 [History] BuPROPion XL (24 HR) [Wellbutrin Xl] 150 mg PO DAILY 08/29/17 [History] Metoprolol Succinate [Toprol Xl] 50 mg PO DAILY 08/29/17 [History] amLODIPine [Norvasc] 10 mg PO DAILY #60 tablet 08/31/17 [Rx] Albuterol Sulfate [Ventolin Hfa] 1 puff IH Q4H PRN 10/16/17 [History] Atorvastatin [Lipitor] 40 mg PO HS 10/16/17 [History] Nitroglycerin [Nitrostat] 0.4 mg SL Q5MIN PRN 10/16/17 [History] diazePAM [Valium] 10 mg PO TID 10/16/17 [History] Doxycycline 100 mg PO BID #20 capsule 10/17/17 [Rx] Allergies/Adverse Reactions: 3 Allergy/AdvReac Type Severity Reaction Status Date / Time No Known Allergies Allergy Verified 08/29/17 22:39 Date of admission: 10/16/17 20:47 Primary care physician: ARGENTINA Villanueva Discharging clinician: Sherly Rice Anticipated date of discharge: 10/17/17 - Constitutional Vitals: Temp Pulse Resp BP Pulse Ox 98.2 F 73 16 107/65 96 10/17/17 16:11 10/17/17 16:11 10/17/17 16:11 10/17/17 16:11 10/17/17 16:11 General appearance: Present: A&O X 3, no acute distress - Patient Status Condition: Fair - Discharge Instructions Follow Up With: Michaelle Caraballo CNP [Primary Care Provider] - - VTE Reasons for not Prescribing Prophylaxis: Not indicated-Anticoagulated or INR therapeutic
== END 2017-10-17 18:18 | disposition home or self-care (01) ==
LOC: 3NENU 17:09 → EMEROO 17:09 → 3NENU 22:00
PROVIDERS: ADMIT Internal Medicine; ATTEND Internal Medicine

== ENCOUNTER 2018-10-12 14:23 | Inpatient (IN) ==
--- NOTE | 2018-10-12 15:06 | Emergency Department Note ---
Disposition Clinical Impression: Pulmonary embolism Qualifiers: Pulmonary embolism type: other Chronicity: acute Acute cor pulmonale presence: without acute cor pulmonale Qualified Code(s): I26.99 - Other pulmonary embolism without acute cor pulmonale Disposition: Admitted As Inpatient Condition: Good Time of Disposition: 18:43 General Adult HPI - General Chief complaint: ED Upper Respiratory Infection Stated complaint: RUQ Pain/ Coughing up blood Time Seen by Provider: 10/12/18 15:02 Source: patient, family Mode of arrival: ambulatory Limitations: no limitations Nursing Notes Reviewed: Yes Vital Signs Reviewed: Yes - History of Present Illness HPI Narrative: 62-year-old male past medical history of myocardial infarction, remote history of cholecystectomy presenting for one week of gradually progressive and worsening right upper quadrant pain. Patient states that he has pain that begins in his right upper quadrant and radiates around to his right flank "like someone is stabbing me through the abdomen". Patient states that his pain is constant 6 out of 10 on the pain scale with spikes to 10 out of 10 made worse with movement or deep breathing as well as palpation. Patient states that he has had some difficulty breathing with this event and notes he has history of C OPD. Patient admits to some scant hemoptysis after coughing for several days "really hard." Patient does not have clinical signs of DVT, he is non- tachycardic, he denies any recent immobilizations, surgeries or previous history of PE/DVT. Patient has no history of cancer. In addition symptoms mentioned above patient admits to some lightheadedness and dizziness as well as nausea but denies chest pain, vomiting or difficulty with ambulation. Onset (ago): day(s) Location: chest, abdomen Radiation: non-radiation Pain Scale: 9 Associated symptoms: Reports: cough, nausea/vomiting, shortness of breath - Related Data Home Medications Medication Instructions Recorded Confirmed Aspirin 81 mg PO DAILY 02/15/15 10/13/18 BuPROPion XL (24 HR) [Wellbutrin 150 mg PO DAILY 08/29/17 10/13/18 Xl] Atorvastatin [Lipitor] 40 mg PO HS 10/16/17 10/13/18 Nitroglycerin [Nitrostat] 0.4 mg SL Q5MIN PRN 10/16/17 10/13/18 Albuterol Sulfate [Proair Hfa] 2 puff IH Q4-6H PRN 10/13/18 10/13/18 Metoprolol Succinate [Toprol Xl] 50 mg PO DAILY 10/13/18 10/13/18 Previous Rx's Medication Instructions Recorded Apixaban [Eliquis] 10 mg PO BID tablet 10/13/18 Allergies Allergy/AdvReac Type Severity Reaction Status Date / Time lisinopril Allergy Swelling Verified 10/13/18 16:13 of Lip/Tongue/Throat hydromorphone [From Dilaudid] AdvReac See Verified 10/13/18 16:13 Comments Review of Systems: *See History of Present Illness for more detail Constitutional: Denies: fever, chills Cardiovascular: Denies: chest pain Respiratory: Admits dyspnea, cough, hemoptysis Gastrointestinal: Patient admits to nausea. Denies: abdominal pain, vomiting, diarrhea, constipation, hematemesis, melena, hematochezia Genitourinary: Denies: hematuria Musculoskeletal: Admits to neck pain Denies: back pain Integumentary: Denies: rash Neurological: Admits to lightheadedness/dizziness Denies: headache, weakness, numbness, paresthesias, difficulty with ambulation. Endocrine: Denies: fatigue All systems ED: reviewed and negative except as stated. Review of Systems: As Per HPI Past Medical History - Past Medical History Medical history: Reports: arthritis, COPD, coronary artery disease, hyperlipidemia, hypertension, myocardial infarction Surgical history: Reports: angioplasty/stent, cholecystectomy, herniorrhaphy Psychiatric history: Reports: anxiety, depression - Social History Smoking Status: Current every day smoker Smokeless Tobacco Status: No Alcohol use: Reports: none Drug use: Reports: none Physical Exam Constitutional: No acute distress, [id number], engaged to conversation, speech is fluid, answers questions appropriately Neuro: GCS 15, no overt focal neurological deficits Head: Atraumatic, normocephalic Eyes: Pupils equal, round and reactive to light, no scleral icterus, no conjunctival injection Neck: Trachea midline without deviation. Anterior neck is supple without swelling. *Chest: Symmetric chest wall rise *Heart: Cardiac rhythm and rate are regular with S1 and S2 , no S3 or S4 appreciated, no murmurs, gallops, rubs, or clicks. *Lungs: Scattered rhonchi noted in the right lower lobe. Lungs are otherwise clear to auscultation bilaterally, without accessory muscle use or prolonged expiratory phase. No wheezes, or stridor appreciated. Abdomen: Abdomen is rotund, soft to palpation, normal bowel sounds. No abdominal bruit auscultated. Non-distended, non-rigid, no organomegaly, no ascites appreciated. No pulsatile mass, no tenderness or guarding to palpation in all four quadrants, no rebound. No CVA tenderness. Extremities: Normal capillary refill without evidence of pedal edema, joint swe lling or erythema. Pulses/motor intact in extremities. Psychiatric exam: Patient displays a normal affect and mood for the environment. No overt signs of hallucination. Integumentary: warm, dry, intact, normal color. No rash, cyanosis, diaphoresis, erythema, or pallor - General Limitations: no limitations General appearance: alert, in no apparent distress Course Course Narrative: Concern for upper right quadrant pathology versus right lower lobe pneumonia CT scan chest, abdomen and pelvis Troponin, d-dimer EKG/old EKG CBC, BMP, hepatic panel, lipase. Zofran and ketorolac for management of patient's pain. Patient declines narcotic pain medications at this time. - Reevaluation(s) Reevaluation #1: Patient d-dimer elevated Will add CTA for further evaluation Patient informed and agreeable with this plan. Vital Signs Temperature 98.4 F 10/12/18 14:57 Pulse Rate 81 10/12/18 14:57 Respiratory Rate 20 10/12/18 14:57 Blood Pressure 170/97 10/12/18 14:57 O2 Sat by Pulse Oximetry 97 10/12/18 14:57 Temperature 98.4 F 10/12/18 17:30 Pulse Rate 77 10/12/18 17:37 Respiratory Rate 24 10/12/18 17:37 Blood Pressure 149/85 10/12/18 17:37 O2 Sat by Pulse Oximetry 93 10/12/18 17:37 Oxygen Delivery Oxygen Delivery Nasal Cannula Medical Decision Making - MDM Narrative Medical decision making narrative: CT angiogram imaging of the chest reveals right middle lobar pulmonary embolism with pulmonary infarction Patient will be started on IV standard dose heparin and admitted to hospitalist medicine service for further evaluation and management. Patient and at bedside informed of the results and verbalizes understanding and agreement with this plan. The patient is hemodynamically stable at the time of admission. - Lab Data Lab results reviewed: Yes I reviewed the patient's lab results. Result diagrams: 10/13/18 01:27 10/13/18 01:27 Lab Results 10/12/18 10/12/18 10/12/18 Range/Units 16:14 16:14 16:14 WBC 11.9 H (4.3-11.1) K/mcL RBC 4.74 (4.19-5.50) M/mcL Hgb 14.8 (12.9-16.9) g/dL Hct 44.8 (37.5-50.1) % MCV 94.5 (83.0-100.0) fL MCH 31.2 (28.0-33.3) pg MCHC 33.0 (31.6-35.5) g/dL RDW 13.0 (11.5-14.5) % Plt Count 229 (140-400) K/mcL MPV 10.5 (9.4-12.4) fL Immature Gran % 0.3 (0-4) % Seg Neutrophils % 68.7 % Lymphocytes % 17.8 % Monocytes % 11.7 % Eosinophils % 1.1 % Basophils % 0.4 % Neutrophils # 8.2 (1.6-8.9) K/mcL Lymphocytes # 2.1 (0.6-4.6) K/mcL Monocytes # 1.4 H (0.0-1.3) K/mcL Eosinophils # 0.1 (0.0-0.6) K/mcL Basophils # 0.1 (0.0-0.2) K/mcL D-Dimer 963 H (0-500) ng/mLFEU Sodium 138 (136-145) mEq/L Potassium 4.0 (3.5-5.1) mEq/L Chloride 104 (98-107) mEq/L Carbon Dioxide 28 (23-29) mEq/L BUN 10 (8-23) mg/dL Creatinine 1.15 (0.70-1.30) mg/dL Est GFR ( Amer) > 60 (> 60) Est GFR (Non-Af Amer) > 60 (> 60) BUN/Creatinine Ratio 9 (6-26) Glucose 77 (70-105) mg/dL Calculated Osmolality 284 (280-300) Calcium 9.2 (8.6-10.3) mg/dL Total Bilirubin 0.6 (0.3-1.0) mg/dL Direct Bilirubin 0.2 (0.0-0.2) mg/dL Indirect Bilirubin 0.4 (0.0-1.2) mg/dL AST 12 L (13-39) Units/L ALT 15 (7-52) Units/L Alkaline Phosphatase 90 (34-104) Units/L Troponin I (< 0.04) ng/mL Serum Total Protein 6.5 (6.4-8.9) g/dL Albumin 4.2 (3.5-5.7) g/dL Globulin 2.3 L (2.4-3.5) g/dL Albumin/Globulin Ratio 1.8 (1.1-2.2) Lipase 15 (11-82) Units/L 10/12/18 Range/Units 16:14 WBC (4.3-11.1) K/mcL RBC (4.19-5.50) M/mcL Hgb (12.9-16.9) g/dL Hct (37.5-50.1) % MCV (83.0-100.0) fL MCH (28.0-33.3) pg MCHC (31.6-35.5) g/dL RDW (11.5-14.5) % Plt Count (140-400) K/mcL MPV (9.4-12.4) fL Immature Gran % (0-4) % Seg Neutrophils % % Lymphocytes % % Monocytes % % Eosinophils % % Basophils % % Neutrophils # (1.6-8.9) K/mcL Lymphocytes # (0.6-4.6) K/mcL Monocytes # (0.0-1.3) K/mcL Eosinophils # (0.0-0.6) K/mcL Basophils # (0.0-0.2) K/mcL D-Dimer (0-500) ng/mLFEU Sodium (136-145) mEq/L Potassium (3.5-5.1) mEq/L Chloride (98-107) mEq/L Carbon Dioxide (23-29) mEq/L BUN (8-23) mg/dL Creatinine (0.70-1.30) mg/dL Est GFR ( Amer) (> 60) Est GFR (Non-Af Amer) (> 60) BUN/Creatinine Ratio (6-26) Glucose (70-105) mg/dL Calculated Osmolality (280-300) Calcium (8.6-10.3) mg/dL Total Bilirubin (0.3-1.0) mg/dL Direct Bilirubin (0.0-0.2) mg/dL Indirect Bilirubin (0.0-1.2) mg/dL AST (13-39) Units/L ALT (7-52) Units/L Alkaline Phosphatase (34-104) Units/L Troponin I < 0.03 (< 0.04) ng/mL Serum Total Protein (6.4-8.9) g/dL Albumin (3.5-5.7) g/dL Globulin (2.4-3.5) g/dL Albumin/Globulin Ratio (1.1-2.2) Lipase (11-82) Units/L - Radiology Data Radiology results reviewed: Yes I reviewed the patient's radiology results. Abdomen/Pelvis CT 10/12/18 15:23 IMPRESSION: 1. Lung parenchyma evaluation limited due to large amount of motion artifact. Again noted is longstanding emphysema with biapical bullous changes, generalized ground-glass attenuation and scattered areas of septal thickening reflecting interstitial lung disease. 2. Superimposed on the above there is a a more dense appearing airspace attenuation in the middle lobe at the lung bases along with small right pleural effusion. Superimposed acute pneumonitis not excluded. 3. Large left inguinal hernia containing nonobstructed descending colon. D/ / Sterling Mauricio MD / Sterling Mauricio MD Interpreting Provider: Sterling Mauricio MD Chest CT 10/12/18 15:25 IMPRESSION: 1. Lung parenchyma evaluation limited due to large amount of motion artifact. Again noted is longstanding emphysema with biapical bullous changes, generalized ground-glass attenuation and scattered areas of septal thickening reflecting interstitial lung disease. 2. Superimposed on the above there is a a more dense appearing airspace attenuation in the middle lobe at the lung bases along with small right pleural effusion. Superimposed acute pneumonitis not excluded. 3. Large left inguinal hernia containing nonobstructed descending colon. D/ / Sterling Mauricio MD / Sterling Mauricio MD Interpreting Provider: Sterling Mauricio MD Chest CTA 10/12/18 17:04 IMPRESSION: Right middle lobar pulmonary embolism extending into segmental and subsegmental branches. Trace right pleural effusion. Right middle lobe airspace disease likely represents infarct. Dependent lower lobe and lingular consolidation is also evident, atelectasis and/or pneumonia. At least moderate emphysema. Findings were discussed with Rom Reno at 6:28 pm on 10/12/2018. D/ / Mari Barragan Cha, MD / Mari Barragan Cha, MD Interpreting Provider: Mari Barragan Cha, MD - EKG Data EKG #1 EKG attestation: Yes I reviewed and interpreted this EKG. EKG results narrative: Patient EKG shows sinus rhythm with a premature ventricular complex at a heart rate of 70 bpm RI interval of 195 ms, QR holiness of 108 ms, QT/QTc interval 369/41 ms speculum. There are no significant ST segment elevations, depressions, pathologic use, abnormal T-wave inversions, or any other signs of acute ischemic change. This EKG performed today is generally consistent with prior EKG performed a 2018. Attestation Statement - Attestation Attestation: I have seen this patient with the resident physician, I have personally ev aluated this patient. I had reviewed the chart and document dictation by the resident physician and aM in agreement with the information documented by the resident physician. Please see documentation by the resident physician for complete chart including past medical history, family medical history, review of systems, current history and physical and laboratory and imaging studies. I was present for all procedures, provided direct supervision for all procedures, was present for the entirety of all procedures and provided direct guidance during the procedures. Please see documentation by the resident physician for any procedures performed. I have reviewed all interpretations of EKGs, and reviewed all EKGs performed on patient's as well. I have also reviewed reports of imaging as provided by radiology.
[2018-10-12] MEDS ORDERED: 0.9 % Sodium Chloride 1,000 ML IVC ONE (15:23)
[2018-10-12] MEDS ORDERED: Ondansetron 4 MG/2 ML VIAL IVP STA (15:25)
[2018-10-12] MEDS ORDERED: Ketorolac 15 MG/ML VIAL IVP ONE (15:25)
--- NOTE | 2018-10-12 16:10 | Emergency Department Note ---
Disposition Clinical Impression: Pulmonary embolism Disposition: Admitted As Inpatient Condition: Fair Referrals: NONE,PCP [Primary Care Provider] - Forms: ED Satisfaction Letter Time of Disposition: 18:32 General Adult HPI - General Chief complaint: ED Upper Respiratory Infection Stated complaint: RUQ Pain/ Coughing up blood Time Seen by Provider: 10/12/18 15:02 Limitations: no limitations - History of Present Illness Pain Scale: 9 - Related Data Home Medications Medication Instructions Recorded Confirmed Aspirin 81 mg PO DAILY 02/15/15 08/21/18 BuPROPion XL (24 HR) [Wellbutrin 150 mg PO DAILY 08/29/17 08/21/18 Xl] Atorvastatin [Lipitor] 40 mg PO HS 10/16/17 08/21/18 Nitroglycerin [Nitrostat] 0.4 mg SL Q5MIN PRN 10/16/17 08/21/18 Previous Rx's Medication Instructions Recorded Metoprolol XL (24 HR) Succ [Toprol 75 mg PO DAILY 30 Days #90 08/23/18 XL] tab.er.24h Allergies Allergy/AdvReac Type Severity Reaction Status Date / Time lisinopril Allergy Swelling Verified 12/15/17 09:04 of Lip/Tongue/Throat Past Medical History - Past Medical History Medical history: Reports: arthritis, COPD, coronary artery disease, hyperlipi demia, hypertension, myocardial infarction Surgical history: Reports: angioplasty/stent, cholecystectomy, herniorrhaphy Psychiatric history: Reports: anxiety, depression - Social History Smoking Status: Current every day smoker Smokeless Tobacco Status: No Alcohol use: Reports: none Drug use: Reports: none Physical Exam - General Limitations: no limitations General appearance: alert, in no apparent distress Course Vital Signs Temperature 98.4 F 10/12/18 14:57 Pulse Rate 81 10/12/18 14:57 Respiratory Rate 20 10/12/18 14:57 Blood Pressure 170/97 10/12/18 14:57 O2 Sat by Pulse Oximetry 97 10/12/18 14:57 Temperature 98.4 F 10/12/18 17:30 Pulse Rate 77 10/12/18 17:37 Respiratory Rate 24 10/12/18 17:37 Blood Pressure 149/85 10/12/18 17:37 O2 Sat by Pulse Oximetry 93 10/12/18 17:37 Oxygen Delivery Oxygen Delivery Nasal Cannula Medical Decision Making - Lab Data Result diagrams: 10/12/18 16:14 10/12/18 16:14 Lab Results 10/12/18 10/12/18 10/12/18 Range/Units 16:14 16:14 16:14 WBC 11.9 H (4.3-11.1) K/mcL RBC 4.74 (4.19-5.50) M/mcL Hgb 14.8 (12.9-16.9) g/dL Hct 44.8 (37.5-50.1) % MCV 94.5 (83.0-100.0) fL MCH 31.2 (28.0-33.3) pg MCHC 33.0 (31.6-35.5) g/dL RDW 13.0 (11.5-14.5) % Plt Count 229 (140-400) K/mcL MPV 10.5 (9.4-12.4) fL Immature Gran % 0.3 (0-4) % Seg Neutrophils % 68.7 % Lymphocytes % 17.8 % Monocytes % 11.7 % Eosinophils % 1.1 % Basophils % 0.4 % Neutrophils # 8.2 (1.6-8.9) K/mcL Lymphocytes # 2.1 (0.6-4.6) K/mcL Monocytes # 1.4 H (0.0-1.3) K/mcL Eosinophils # 0.1 (0.0-0.6) K/mcL Basophils # 0.1 (0.0-0.2) K/mcL D-Dimer 963 H (0-500) ng/mLFEU Sodium 138 (136-145) mEq/L Potassium 4.0 (3.5-5.1) mEq/L Chloride 104 (98-107) mEq/L Carbon Dioxide 28 (23-29) mEq/L BUN 10 (8-23) mg/dL Creatinine 1.15 (0.70-1.30) mg/dL Est GFR ( Amer) > 60 (> 60) Est GFR (Non-Af Amer) > 60 (> 60) BUN/Creatinine Ratio 9 (6-26) Glucose 77 (70-105) mg/dL Calculated Osmolality 284 (280-300) Calcium 9.2 (8.6-10.3) mg/dL Total Bilirubin 0.6 (0.3-1.0) mg/dL Direct Bilirubin 0.2 (0.0-0.2) mg/dL Indirect Bilirubin 0.4 (0.0-1.2) mg/dL AST 12 L (13-39) Units/L ALT 15 (7-52) Units/L Alkaline Phosphatase 90 (34-104) Units/L Troponin I (< 0.04) ng/mL Serum Total Protein 6.5 (6.4-8.9) g/dL Albumin 4.2 (3.5-5.7) g/dL Globulin 2.3 L (2.4-3.5) g/dL Albumin/Globulin Ratio 1.8 (1.1-2.2) Lipase 15 (11-82) Units/L 10/12/18 Range/Units 16:14 WBC (4.3-11.1) K/mcL RBC (4.19-5.50) M/mcL Hgb (12.9-16.9) g/dL Hct (37.5-50.1) % MCV (83.0-100.0) fL MCH (28.0-33.3) pg MCHC (31.6-35.5) g/dL RDW (11.5-14.5) % Plt Count (140-400) K/mcL MPV (9.4-12.4) fL Immature Gran % (0-4) % Seg Neutrophils % % Lymphocytes % % Monocytes % % Eosinophils % % Basophils % % Neutrophils # (1.6-8.9) K/mcL Lymphocytes # (0.6-4.6) K/mcL Monocytes # (0.0-1.3) K/mcL Eosinophils # (0.0-0.6) K/mcL Basophils # (0.0-0.2) K/mcL D-Dimer (0-500) ng/mLFEU Sodium (136-145) mEq/L Potassium (3.5-5.1) mEq/L Chloride (98-107) mEq/L Carbon Dioxide (23-29) mEq/L BUN (8-23) mg/dL Creatinine (0.70-1.30) mg/dL Est GFR ( Amer) (> 60) Est GFR (Non-Af Amer) (> 60) BUN/Creatinine Ratio (6-26) Glucose (70-105) mg/dL Calculated Osmolality (280-300) Calcium (8.6-10.3) mg/dL Total Bilirubin (0.3-1.0) mg/dL Direct Bilirubin (0.0-0.2) mg/dL Indirect Bilirubin (0.0-1.2) mg/dL AST (13-39) Units/L ALT (7-52) Units/L Alkaline Phosphatase (34-104) Units/L Troponin I < 0.03 (< 0.04) ng/mL Serum Total Protein (6.4-8.9) g/dL Albumin (3.5-5.7) g/dL Globulin (2.4-3.5) g/dL Albumin/Globulin Ratio (1.1-2.2) Lipase (11-82) Units/L Attestation Statement - Attestation Attestation: I have seen this patient with the resident physician, I have personally evaluated this patient. I had reviewed the chart and document dictation by the resident physician and aM in agreement with the information documented by the resident physician. Please see documentation by the resident physician for complete chart including past medical history, family medical history, review of systems, current history and physical and laboratory and imaging studies. I was present for all procedures, provided direct supervision for all procedures, was present for the entirety of all procedures and provided direct guidance during the procedures. Please see documentation by the resident physician for any procedures performed. I have reviewed all interpretations of EKGs, and reviewed all EKGs performed on patient's as well. I have also reviewed reports of imaging as provided by radiology. Patient presented emergency department with chief complaint of right lower chest/right upper abdominal pain, progressing since yesterday. Some slight nausea no vomiting, he has had cough sputum production states this pain is worse with cough and deep breathing, he states it is difficult to tell whether or not the pain is in his chest or his abdomen is pain does go into his back. He states he has had some subjective chills no actual fevers he states that today when he was coughing really hard he knows some blood-tinged sputum. He has never had that before. No recent travel surgery immobilization no leg pain or leg swelling, recently although states within the last year he did have some right leg pain and swelling, was found have varicose veins for which she had sclerotherapy. He has not had any pain or swelling in his calf in the last couple of months. The patient denies any headache neck pain neck stiffness. Denies weight loss. Denies any urinary changes. Denies jaw pain. States they tried taking some Tylenol without any improvement of his symptoms. On exam patient is alert oriented 3 nontoxic in appearance cranial nerves are intact. Lungs are clear apart from right lower lobe rhonchi. No tachypnea and no tachycardia heart is regular no murmurs rubs or gallops there is no JVD there is full nontender range of motion of the neck. The right upper abdomen is tender to palpation although difficult to assess whether or not this is subdiaphragmatic or supradiaphragmatic, he does seem to have some right upper quadrant tenderness. He is status post cholecystectomy in the past. He does have a large ventral hernia, which is nontender and reducible, without evidence of incarceration warmth or erythema on the abdominal wall and this is nontender does not reproduce his reported pain. There is no rash or evidence of zoster. No peripheral edema, no unilateral swelling palpable cord Tenderness homicidal or clinical evidence of DVT. EKG was normal sinus rhythm with no evidence of acute change from prior EKG, no evidence of acute ST elevation or ST depression or T-wave inversion no evidence of pericarditis. Basic laboratory studies were ordered, imaging was ordered to further evaluate. Patient was given Zofran and Toradol for his symptoms. Basic laboratory studies including CBC basic metabolic profile cardiac enzymes were all within acceptable limits d-dimer was elevated at over 900. Imaging of the chest abdomen and pelvis was ordered, CT of the chest shows right middle lobe pulmonary embolism with pulmonary infarction. Patient will be started on anticoagulation and will be admitted to the hospital for further evaluation and management of pulmonary embolus.
[2018-10-12 16:53] LABS: Alanine Aminotransferase 15 Units/L (7-52); Albumin 4.2 g/dL (3.5-5.7); Albumin/Globulin Ratio 1.8 (1.1-2.2); Alkaline Phosphatase 90 Units/L (34-104); Aspartate Amino Transferase 12 Units/L (13-39); BUN/Creatinine Ratio 9 (6-26); Bilirubin,Direct 0.2 mg/dL (0.0-0.2); Bilirubin,Indirect 0.4 mg/dL (0.0-1.2); Bilirubin,Total 0.6 mg/dL (0.3-1.0); Blood Urea Nitrogen 10 mg/dL (8-23); Calcium 9.2 mg/dL (8.6-10.3); Carbon Dioxide 28 mEq/L (23-29); Chloride 104 mEq/L (98-107); Globulin 2.3 g/dL (2.4-3.5); Glucose 77 mg/dL (70-105); Lipase 15 Units/L (11-82); Osmolality,Calculated 284 (280-300); Sodium 138 mEq/L (136-145); Total Protein 6.5 g/dL (6.4-8.9); eGFR For Non-African Americans > 60 (> 60)
[2018-10-12] MEDS ORDERED: Isovue-370 500 ML BOTTLE IVP ONE (17:04)
[2018-10-12 17:28] LABS: Basophils # 0.1 K/mcL (0.0-0.2); Basophils % 0.4 %; Eosinophils # 0.1 K/mcL (0.0-0.6); Eosinophils % 1.1 %; Hematocrit 44.8 % (37.5-50.1); Hemoglobin 14.8 g/dL (12.9-16.9); Immature Granulocytes % 0.3 % (0-4); Lymphocytes # 2.1 K/mcL (0.6-4.6); Lymphocytes % 17.8 %; Mean Corpuscular Hemoglobin 31.2 pg (28.0-33.3); Mean Corpuscular Volume 94.5 fL (83.0-100.0); Mean Platelet Volume 10.5 fL (9.4-12.4); Monocytes # 1.4 K/mcL (0.0-1.3); Monocytes % 11.7 %; Neutrophils # 8.2 K/mcL (1.6-8.9); Platelet Count 229 K/mcL (140-400); Red Blood Count 4.74 M/mcL (4.19-5.50); Segmented Neutrophils % 68.7 %
[2018-10-12] MEDS ORDERED: *HR* Heparin 5,000 UNIT/ML VIAL IVP ONE (18:37)
[2018-10-12] MEDS ORDERED: *HR* Heparin 5,000 UNIT/ML VIAL IVP PRN ×2 (18:37)
[2018-10-12] MEDS: Heparin 25,000 UNIT/250 ML D5W 25,000 UNIT/250 ML IV.SOLN IVC SCH (18:57)
[2018-10-12 20:05] LABS: Hematocrit 40.4 % (37.5-50.1); Hemoglobin 13.8 g/dL (12.9-16.9); Mean Corpuscular HGB Conc 34.2 g/dL (31.6-35.5); Mean Corpuscular Hemoglobin 31.8 pg (28.0-33.3); Mean Corpuscular Volume 93.1 fL (83.0-100.0); Mean Platelet Volume 10.3 fL (9.4-12.4); Platelet Count 210 K/mcL (140-400); Red Blood Count 4.34 M/mcL (4.19-5.50); Red Cell Distribution Width 13.1 % (11.5-14.5)
[2018-10-12] MEDS ORDERED: Naloxone 0.4 MG/ML INJ IVP PRN (22:02)
[2018-10-12] MEDS ORDERED: traMADol 50 MG TABLET PO PRN (22:02)
--- NOTE | 2018-10-12 22:08 | Internal Med History&Physical ---
Date of Encounter: 10/12/18 Time of Encounter: 20:35 Internal Medicine - H&P: HPI Chief complaint: Pulmonary embolism Admitted From: Emergency Dept Plans for Post Hospital Care: Home History of present illness: Mr. Hernandez is a 62 year old male patient presented to the emergency room with shortness of breath and right upper chest pain. He states that he had been out working in cleaning around his house yesterday then sat down at around 4 PM. He suddenly had right sided chest pain that he never had before. He had been coughing before this and thought it was secondary to that he went to bed and when he woke up he continued to cough and had some blood in his sputum. He had some shortness of breath as well. His had an appointment at the hospital and he came along to go to the ER for further evaluation. In the emergency room patient's initial vital signs were within normal limits Including oxygen saturation of 97% on room air. He did have an elevated blood pressure of 170/97, but this has since improved without intervention. CBC: Significant only for slightly elevated white count of 11.9, hemoglobin and platelets are within normal limits BMP within normal limits Troponin undetectable D-dimer 963 Imaging: CT chest abdomen and pelvis was performed that showed motion artifact but groundglass attenuation of the lung. Patient also had large left inguinal hernia containing nonobstructed descending colon. CT angiogram chest: Right middle lobe pulmonary embolism extending into segmental and subsegmental branches. Trace pleural effusion with right middle lobe airspace disease likely representing infarct. Patient was started on heparin drip in the emergency room. Upon my evaluation, patient is resting comfortably in the hospital bed in no acute distress. He denies chest pain, abdominal pain, nausea, vomiting, diarrhea and constipation shortness of breath has improved. He has never had b lood clots before, but does state his mother had a history of blood clots and required an IVC filter to be placed. She also had history of heart disease. Patient does not know much about his father, as he when he was young. Patient is full code. Past Med Surg Social Fam HX - Past Medical History Medical history: arthritis, COPD, coronary artery disease, hyperlipidemia, hypertension, myocardial infarction Additional medical history: hernia. CAD Psychiatric history: anxiety, depression - Past Surgical History Surgical History: angioplasty/stent, cholecystectomy, herniorrhaphy - Social History Smoking Status: Current every day smoker Smokeless Tobacco Status: No Alcohol use: none Drug use: none - Family History Mother Living Status: Hx Family Cardiac Disorders: Yes (CHF) Hx Family Respiratory Disorders: Yes Father Living Status: Internal Medicine - H&P: Meds Aspirin 81 mg PO DAILY 02/15/15 [History] BuPROPion XL (24 HR) [Wellbutrin Xl] 150 mg PO DAILY 08/29/17 [History] Atorvastatin [Lipitor] 40 mg PO HS 10/16/17 [History] Nitroglycerin [Nitrostat] 0.4 mg SL Q5MIN PRN 10/16/17 [History] Metoprolol XL (24 HR) Succ [Toprol XL] 75 mg PO DAILY 30 Days #90 tab.er.24h 08/23/18 [Rx] Allergy/AdvReac Type Severity Reaction Status Date / Time lisinopril Allergy Swelling Verified 12/15/17 09:04 of Lip/Tongue/Throat All Systems PM: A 10-system review of systems was performed and is negative for pertinent findings except as documented above in the HPI. - Constitutional Vitals: Temp Pulse Resp BP Pulse Ox 98.4 F 78 22 124/80 94 10/12/18 17:30 10/12/18 20:53 10/12/18 20:53 10/12/18 20:53 10/12/18 20:53 General appearance: Present: cooperative, A&O X 3, pleasant, no acute distress, answers questions appropriately Exam: - - Head Head exam: Present: normal inspection - Eye Eye exam: Present: EOMI, normal appearance - Respiratory Respiratory exam: Present: CTAB. Absent: rales, respiratory distress, rhonchi, wheezes - Cardiovascular Cardiovascular exam: Present: RRR. Absent: diastolic murmur, systolic murmur - GI/Abdominal GI/Abdominal exam: Present: normal bowel sounds, soft. Absent: tenderness - Extremities Exam Extremities exam: Present: calf tenderness, tenderness, warm, radial pulses palpable and symmetrical. Absent: pedal edema Additional comments: Right lower extremity calf tenderness medially with palpation - Neurological Exam Neurological exam: Present: no focal deficits, strengths equal and symetr throughout. Absent: motor sensory deficit, facial droop, speech deficit - Skin Skin exam: Present: dry, normal color, warm Internal Med - H&P Results - Labs CBC & Chem 7: 10/12/18 19:20 10/12/18 16:14 Labs: Short CBC 10/12/18 10/12/18 Range/Units 16:14 19:20 WBC 11.9 H 11.4 H (4.3-11.1) K/mcL Hgb 14.8 13.8 (12.9-16.9) g/dL Hct 44.8 40.4 (37.5-50.1) % Plt Count 229 210 (140-400) K/mcL Neutrophils # 8.2 (1.6-8.9) K/mcL BMP 10/12/18 16:14 Sodium 138 Potassium 4.0 Chloride 104 Carbon Dioxide 28 BUN 10 Creatinine 1.15 Glucose 77 Calcium 9.2 Cardiac Enzymes 10/12/18 Range/Units 16:14 Troponin I < 0.03 (< 0.04) ng/mL Liver Function 10/12/18 Range/Units 16:14 Total Bilirubin 0.6 (0.3-1.0) mg/dL Direct Bilirubin 0.2 (0.0-0.2) mg/dL AST 12 L (13-39) Units/L ALT 15 (7-52) Units/L Alkaline Phosphatase 90 (34-104) Units/L Albumin 4.2 (3.5-5.7) g/dL - Impressions ITS Impressions Abdomen/Pelvis CT 10/12/18 15:23 IMPRESSION: 1. Lung parenchyma evaluation limited due to large amount of motion artifact. Again noted is longstanding emphysema with biapical bullous changes, generalized ground-glass attenuation and scattered areas of septal thickening reflecting interstitial lung disease. 2. Superimposed on the above there is a a more dense appearing airspace attenuation in the middle lobe at the lung bases along with small right pleural effusion. Superimposed acute pneumonitis not excluded. 3. Large left inguinal hernia containing nonobstructed descending colon. D/ / Sterling Mauricio MD / Sterling Mauricio MD Interpreting Provider: Sterling Mauricio MD Chest CT 10/12/18 15:25 IMPRESSION: 1. Lung parenchyma evaluation limited due to large amount of motion artifact. Again noted is longstanding emphysema with biapical bullous changes, generalized ground-glass attenuation and scattered areas of septal thickening reflecting interstitial lung disease. 2. Superimposed on the above there is a a more dense appearing airspace attenuation in the middle lobe at the lung bases along with small right pleural effusion. Superimposed acute pneumonitis not excluded. 3. Large left inguinal hernia containing nonobstructed descending colon. D/ / Sterling Mauricio MD / Sterling Mauricio MD Interpreting Provider: Sterling Mauricio MD Chest CTA 10/12/18 17:04 IMPRESSION: Right middle lobar pulmonary embolism extending into segmental and subsegmental branches. Trace right pleural effusion. Right middle lobe airspace disease likely represents infarct. Dependent lower lobe and lingular consolidation is also evident, atelectasis and/or pneumonia. At least moderate emphysema. Findings were discussed with Rom Reno at 6:28 pm on 10/12/2018. D/ / Mari Barragan Cha, MD / Mari Barragan Cha, MD Interpreting Provider: Mari Barragan Cha, MD - Assessment and Plan (1) Pulmonary embolism Current Visit: Yes Status: Acute Assessment and plan: As seen on patient's CT angiogram, patient has a pulmonary embolus him in the right middle lobe are region. He started on heparin drip in the emergency room. He has had pain in his right lower leg as well. Patient is a smoker, 5-6 cigarettes per day for many years. Right lower extremity Doppler to rule out DVT Continue heparin drip for pulmonary embolism, discuss further anticoagulation at time of discharge Oxygen supplementation as needed Pain medicine as needed Qualifiers: Pulmonary embolism type: unspecified Chronicity: acute Acute cor pulm onale presence: without acute cor pulmonale Qualified Code(s): I26.99 - Other pulmonary embolism without acute cor pulmonale (2) Shortness of breath Current Visit: Yes Status: Acute Assessment and plan: Likely secondary to pulmonary embolism. Improved with oxygen patient is saturating above 95%. Treatment of pulmonary embolism as above (3) Pain in right lower leg Current Visit: Yes Status: Acute Assessment and plan: Patient has pain in his right lower leg for the last week. Could be clot which would be a source of his pulmonary embolism. Lower extremity Doppler the right Continue heparin drip (4) COPD (chronic obstructive pulmonary disease) Current Visit: No Status: Chronic Assessment and plan: Patient not on nebulizers at home but does take albuterol inhaler on occasion Oxygen supplementation as needed Qualifiers: COPD type: unspecified COPD Qualified Code(s): J44.9 - Chronic obstructive pulmonary disease, unspecified (5) Tobacco abuse Current Visit: No Status: Chronic Assessment and plan: Patient declines nicotine patch (6) DVT prophylaxis Current Visit: No Status: Acute Assessment and plan: Continue heparin drip - Time Spent With Patient Total time spent is greater than 50% in coordination of care (as documented) at patient's floor/unit and/or counseling patient: Greater than 35 minutes
[2018-10-13 02:14] LABS: Hemoglobin 13.2 g/dL (12.9-16.9); Mean Corpuscular Hemoglobin 30.8 pg (28.0-33.3); Mean Corpuscular Volume 93.5 fL (83.0-100.0); Mean Platelet Volume 10.5 fL (9.4-12.4); Platelet Count 197 K/mcL (140-400); Red Blood Count 4.28 M/mcL (4.19-5.50); Red Cell Distribution Width 13.2 % (11.5-14.5)
[2018-10-13 02:35] LABS: BUN/Creatinine Ratio 12 (6-26); Blood Urea Nitrogen 12 mg/dL (8-23); Calcium 8.9 mg/dL (8.6-10.3); Carbon Dioxide 26 mEq/L (23-29); Chloride 107 mEq/L (98-107); Glucose 101 mg/dL (70-105); Osmolality,Calculated 286 (280-300); Potassium 4.1 mEq/L (3.5-5.1); Sodium 138 mEq/L (136-145); eGFR For Non-African Americans > 60 (> 60)
[2018-10-13] MEDS ORDERED: Ondansetron 4 MG/2 ML VIAL IVP PRN (06:26)
[2018-10-13] MEDS ORDERED: Nitroglycerin 0.4 MG TAB.SUBL SL PRN (08:15)
[2018-10-13] MEDS ORDERED: BuPROPion XL (24 HR) 150 MG TABLET PO SCH (09:00)
[2018-10-13] MEDS ORDERED: Aspirin 81 MG TAB.CHEW PO SCH (09:00)
[2018-10-13] MEDS ORDERED: Metoprolol XL (24 HR) Succ 25 MG TAB.ER.24H PO SCH (09:00)
[2018-10-13 10:25] LABS: Heparin anti-factor XA UFH 0.46 IU/mL (0.30-0.70); INR 1.2; Prothrombin Time 13.4 Seconds (9.4-12.1)
[2018-10-13 10:28] LABS: Activated Partial Thrombo Time 69.7 Seconds (26.0-36.0)
[2018-10-13] MEDS ORDERED: Acetaminophen 325 MG TABLET PO PRN (13:41)
[2018-10-13] MEDS: Heparin 25,000 UNIT/250 ML D5W 25,000 UNIT/250 ML IV.SOLN IVC SCH (14:06)
--- NOTE | 2018-10-13 14:14 | Electrocardiograph Report ---
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
--- NOTE | 2018-10-13 15:17 | Discharge Summary ---
- NOTES TO OUTPATIENT PROVIDER Notes to Outpatient Provider: Patient with history of COPD, coronary artery disease, hypertension, prior [place] was hospitalized here with shortness of breath and was diagnosed with acute pulmonary embolism involving the right middle lobe extending into segmental and subsegmental branches. He was started on treatment for this with IV heparin. His now doing much better. His 2-D echocardiogram did not show any right ventricular strain. Venous Doppler of the right lower extremity where he was having some pain did not show any DVT. He has now been transitioned to Eliquis and he will continue to take Eliquis. He will need to be on anticoagulation for at least 6 months. He understands that he needs to watch for any signs of bleeding. He will follow up with his primary care provider for further management. In addition, he may be referred to hematology as outpatient to evaluate any clotting disorders that may have contributed to this unprovoked PE. Date of Encounter: 10/13/18 Time of Encounter: 15:14 - Discharge Diagnosis (1) Pulmonary embolism Priority: Primary Status: Acute Qualifiers: Pulmonary embolism type: other Chronicity: acute Acute cor pulmonale presence: without acute cor pulmonale Qualified Code(s): I26.99 - Other pulmonary embolism without acute cor pulmonale (2) COPD (chronic obstructive pulmonary disease) Priority: Secondary Status: Chronic Qualifiers: COPD type: unspecified COPD Qualified Code(s): J44.9 - Chronic obstructive pulmonary disease, unspecified (3) Tobacco abuse Priority: Secondary Status: Chronic (4) Shortness of breath Priority: Secondary Status: Acute (5) Pain in right lower leg Priority: Secondary Status: Resolved (6) DVT prophylaxis Priority: Secondary Status: Acute Hospital course: Mr. Hernandez is a 62 year old male Patient with history of COPD, coronary artery disease, hypertension, prior [place] was hospitalized here with shortness of breath and was diagnosed with acute pulmonary embolism involving the right middle lobe extending into segmental and subsegmental branches. He was started on treatment for this with IV heparin. His now doing much better. His 2-D echocardiogram did not show any right ventricular strain. Venous Doppler of the right lower extremity where he was having some pain did not show any DVT. He has now been transitioned to Eliquis and he will continue to take Eliquis. He will need to be on anticoagulation for at least 6 months. He understands that he needs to watch for any signs of bleeding. He will follow up with his primary care provider for further management. In addition, he may be referred to hematology as outpatient to evaluate any clotting disorders that may have contributed to this unprovoked PE. Patient does have history of epistaxis while on Plavix that required stopping this medication. He does understand that he needs to watch for any signs of bleeding and come to the ER to get checked out as soon as possible. Discharge discussed with: patient, nurse - Time Spent with Patient Total time spent providing and/or coordinating discharge services: Time spent: Less than 30 minutes (25 min) - Discharge Medications Prescriptions: New Apixaban [Eliquis] 10 mg PO BID tablet Continued Aspirin 81 mg PO DAILY BuPROPion XL (24 HR) [Wellbutrin Xl] 150 mg PO DAILY Atorvastatin [Lipitor] 40 mg PO HS Nitroglycerin [Nitrostat] 0.4 mg SL Q5MIN PRN PRN Reason: Chest Pain Metoprolol XL (24 HR) Succ [Toprol Xl] 50 mg PO DAILY Home Medications: Aspirin 81 mg PO DAILY 02/15/15 [History] BuPROPion XL (24 HR) [Wellbutrin Xl] 150 mg PO DAILY 08/29/17 [History] Atorvastatin [Lipitor] 40 mg PO HS 10/16/17 [History] Nitroglycerin [Nitrostat] 0.4 mg SL Q5MIN PRN 10/16/17 [History] Metoprolol XL (24 HR) Succ [Toprol Xl] 50 mg PO DAILY 10/12/18 [History] Apixaban [Eliquis] 10 mg PO BID tablet 10/13/18 [Rx] Allergies/Adverse Reactions: Allergy/AdvReac Type Severity Reaction Status Date / Time lisinopril Allergy Swelling Verified 12/15/17 09:04 of Lip/Tongue/Throat Date of admission: 10/12/18 20:50 Primary care physician: PCP NONE Discharging clinician: Emi Gonzalez Anticipated date of discharge: 10/13/18 - Constitutional Vitals: Temp Pulse Resp BP Pulse Ox 97.8 F 63 16 110/67 94 10/13/18 11:56 10/13/18 11:56 10/13/18 11:56 10/13/18 11:56 10/13/18 11:56 General appearance: Present: cooperative, A&O X 3, pleasant, no acute distress, answers questions appropriately Exam: General: Patient is alert, no acute distress, oriented x 3 ENT: Mucous membranes moist Respiratory: Good respiratory effort. Normal breath sounds. No wheezing or crackles. Cardiovascular: Regular rate and rhythm. s1 and s2 normal No clicks, rubs, gallops, or murmurs. No pedal edema Abdomen: Abdomen is soft, nontender. Bowel sounds are present Musculoskeletal: Spontaneously moving all extremities Skin: warm, dry, intact. Neuro: Alert oriented x 3 normal cranial nerves, no focal deficits - Patient Status Disposition: Home, Self-Care Condition: Good Functional capacity at discharge: independent ambulation Overall status at discharge: patient is progressing back to baseline - Discharge Instructions Instructions: Pulmonary Embolism (DC) Follow Up With: Michaelle Caraballo [employer] [Advanced Practice Nurse] - (in 1week) - Diet and Activity Activity: increase activity as tolerated Diet: low fat, low cholesterol, low salt diet
[2018-10-13 15:42] VITALS: BP 110/62
[2018-10-13] MEDS ORDERED: Apixaban 5 MG TABLET PO SCH (16:00)
== END 2018-10-13 18:38 | disposition home or self-care (01) | DRG 176 ==
LOC: EMEROOARM 14:23 → 3ANU 20:50
PROVIDERS: ADMIT Internal Medicine; ATTEND Internal Medicine